=== PATIENT | female | born 1980 | race Asian ===

== ENCOUNTER 2017-09-02 14:12 | Emergency (ER) | payer OTHER, BC ==
[~2017-09-02] VITALS: Ht 160 cm; Wt 59.1 kg
[2017-09-02] MEDS ORDERED: orphenadrine citrate 60mg/2ml inj. IM ONE (14:45)
[2017-09-02] MEDS ORDERED: ketorolac tromethamine 15mg/ml inj. IM ONE (14:45)
[2017-09-02] MEDS ORDERED: HYDROcodone/acetaminophen 5mg/325mg tablet PO ONE (14:45)
[2017-09-02] MEDS ORDERED: HYDR-3965 PO (15:12)
[2017-09-02] MEDS ORDERED: CYCL-1 PO (15:12)
[2017-09-02] MEDS ORDERED: ONDA4TAB12 PO (15:12)
[2017-09-02] MEDS ORDERED: IBUP-1985 PO (15:12)
[2017-09-02 16:00] VITALS: BP 125/89
== END 2017-09-02 16:03 | disposition home or self-care (01) ==
LOC: ER 14:13
DX: S16.1XXA Strain of muscle, fascia and tendon at neck level, initial encounter (principal); Z88.6 Allergy status to analgesic agent; Z79.899 Other long term (current) drug therapy; V89.2XXA Person injured in unspecified motor-vehicle accident, traffic, initial encounter; Y93.89 Activity, other specified; Y99.8 Other external cause status; Y92.410 Unspecified street and highway as the place of occurrence of the external cause
CPT/HCPCS: 72040; 96372; 99284; J1885; J2360

== ENCOUNTER 2019-04-29 11:09 | Emergency (ER) | payer BC, OTHER ==
[~2019-04-29] VITALS: Ht 160 cm; Wt 61.4 kg
[~2019-04-29 11:09] MED LIST: CYCL-1 PO; IBUP-1985 PO; ONDA4TAB12 PO
[2019-04-29] MEDS ORDERED: METH4TAB81 PO (11:59)
[2019-04-29] MEDS ORDERED: CYCL5TAB14 PO (11:59)
[2019-04-29 12:20] VITALS: BP 113/76
== END 2019-04-29 12:21 | disposition home or self-care (01) ==
LOC: ER 11:10
DX: M54.5 Low back pain (principal); Z79.899 Other long term (current) drug therapy
CPT/HCPCS: 99283